=== PATIENT | female | born 1995 | race Caucasian/White ===

== ENCOUNTER 2016-11-14 18:26 | Emergency (ER) | payer MEDICAID ==
[2016-11-14 18:51] VITALS: BP 116/71
--- NOTE | 2016-11-14 19:26 | UC ---
Respiratory Complaint HPI - HPI Summary HPI Summary: Patient presents with URI, nausea and abnormal discharge x 10 days. Hx of chlamydia. Patient is unsure if she has any STD's. Discharge is thick and white without burning or labial irritation. Denies odor. She notes to intermittent nausea daily but denies vomiting. URI symptoms of cough and congestion present x 10 days. She has been eating and drinking OK. Denies chest pressure, pain or SOB. Denies neck pain, V/C/D or back pain. Denies urinary symptoms. - History of Current Complaint Chief Complaint: UCGI Stated Complaint: WEAKNESS NAUSEA Time Seen by Provider: 11/14/16 19:01 Hx Obtained From: Patient Hx Last Menstrual Period: 10/17/16 ?: No Onset/Duration: Sudden Onset Severity Initially: Moderate Severity Currently: Moderate Pain Intensity: 1 Pain Scale Used: 0-10 Numeric Character: Cough: Nonproductive Associated Signs And Symptoms: Positive: URI, Nasal Congestion, Sinus Discomfort - Risk Factors Pulmonary Embolism Risk Factors: Negative Cardiac Risk Factors: Negative Pseudomonas Risk Factors: Negative Tuberculosis Risk Factors: Negative - Allergies/Home Medications Allergies/Adverse Reactions: Allergies Allergy/AdvReac Type Severity Reaction Status Date / Time Penicillins Allergy Severe Hives Verified 11/14/16 18:51 Morphine Allergy Hives Verified 11/14/16 18:51 PMH/Surg Hx/FS Hx/Imm Hx Previously Healthy: Yes - Surgical History Surgical History: Yes Surgery Procedure, Year, and Place: Sinus surgery - Family History Known Family History: Positive: None - Social History Occupation: Employed Part-time Lives: With Family Alcohol Use: None Substance Use Type: None Smoking Status (MU): Never Smoked Tobacco - Immunization History Most Recent Influenza Vaccination: Fall 2013 Vaccination Up to Date: Yes Review of Systems Constitutional: Negative Skin: Negative ENT: Nasal Discharge Respiratory: Cough Cardiovascular: Negative Gastrointestinal: Other - nausea Genitourinary: Other - discharge Motor: Negative Musculoskeletal: Negative Neurological: Negative All Other Systems Reviewed And Are Negative: Yes Physical Exam Triage Information Reviewed: Yes Appearance: Well-Appearing, No Pain Distress, Well-Nourished Vital Signs: Initial Vital Signs Temp 98.3 F 11/14/16 18:45 Pulse 86 11/14/16 18:45 Resp 16 11/14/16 18:45 BP 116/71 11/14/16 18:45 Pulse Ox 100 11/14/16 18:45 Vital Signs Reviewed: Yes Eye Exam: Normal Eyes: Positive: Conjunctiva Clear Neck exam: Normal Neck: Positive: Supple, Nontender, No Lymphadenopathy Respiratory Exam: Normal Respiratory: Positive: Chest non-tender, Lungs clear Cardiovascular: Positive: RRR Abdominal Exam: Normal Abdomen Description: Positive: Nontender Musculoskeletal: Positive: Strength Intact Neurological Exam: Normal Neurological: Positive: Alert Psychological: Positive: Age Appropriate Behavior Diagnostic Evaluation - Laboratory O2 Sat by Pulse Oximetry: 100 Respiratory Course/Dx - Course Course Of Treatment: Vaginal discharge white without labial irritation. Patient preferes to have urine test as opposed to vaginal swab. Limitations discussed with patient. GC/Chlamydia urine sent. Will call if results are positive. Zofran given for nausea. Claritin given for head cold symptoms. Patient will follow up with OBGYN as needed. - Differential Dx/Diagnosis Differential Diagnosis/HQI/PQRI: Bronchitis, Sinusitis, Other - GC/Chlamydia, other STD, nausea Provider Diagnoses: Nausea; Vaginal discharge Discharge - Discharge Plan Condition: Stable Disposition: HOME Prescriptions: Loratadine [Claritin 10 MG CAP] 10 mg PO DAILY #15 cap Ondansetron ODT TAB* [Zofran 4 MG Odt TAB*] 4 mg PO Q6H PRN #12 tab.odt MDD 4 PRN Reason: Nausea Patient Education Materials: Upper Respiratory Infection (ED), Acute Nausea and Vomiting (ED) Referrals: BRISA Hays [Primary Care Provider] - Additional Instructions: Will call if positive results of GC/Chlaymdia test Drink plenty of fluids Flonase daily Claritin daily Continue with dayquil as needed for cough Humidifier in the home will help. Tylenol for discomfort. Take all medications as directed. Symptoms or upper respiratory infection should resolve in 1-3 weeks. If symptoms become worse, please come back to or go to the ED.
== END 2016-11-14 19:24 | disposition home or self-care (01) ==
LOC: UCCORT 18:26
DX: N89.8 Other specified noninflammatory disorders of vagina (principal); Z32.02 Encounter for pregnancy test, result negative; Z88.5 Allergy status to narcotic agent; Z88.0 Allergy status to penicillin
CPT/HCPCS: 81003; 84702; 87491; 87591; 99212; G0463

== ENCOUNTER 2016-11-28 18:35 | Emergency (ER) | payer MEDICAID ==
[2016-11-28 19:22] VITALS: BP 115/82
--- NOTE | 2016-11-28 20:29 | UC ---
Complaint Female HPI - HPI Summary HPI Summary: 21 female presents with complaints of vaginally discharge, odor, burning when peeing that began ~3 weeks ago and has worsened since. States she was here on 11/14/16 and was not treated for anything as her cultures came back negative. Patient states since the discharge and odor has become worse. States discharge is white in color however the past day she also has experienced some spotting. Her LMP was 11/18/16 and she has never experiencing spotting in between periods before. Patient does not think she has STDs as she is sexually active with the same partner. She denies abdominal pain, pelvic pain and fever/chills. Does not think she is however is not taking any or using any control measures. No other complaints. Negative PMHx. No meds and denies worsening symptoms during intercourse. She has had intercourse since LMP. No prior pregnancies or STD history. - History Of Current Complaint Chief Complaint: UCGU Stated Complaint: PERSONAL Time Seen by Provider: 11/28/16 19:29 Hx Obtained From: Patient Hx Last Menstrual Period: 11/18/16 ?: No Onset/Duration: Sudden Onset Timing: Constant Severity Initially: Mild Severity Currently: Moderate Pain Intensity: 0 Pain Scale Used: 0-10 Numeric - just uncomfortable Character: Not Applicable Aggravating Factor(s): Urination Alleviating Factor(s): Nothing Associated Signs And Symptoms: Positive: Vaginal Bleeding/Discharge - white and spotting brown/red, Nausea. Negative: Fever, Back Pain, Vomiting(# Of Episodes =), Genital Swelling, Genital Blisters - Allergies/Home Medications Allergies/Adverse Reactions: Allergies Allergy/AdvReac Type Severity Reaction Status Date / Time Penicillins Allergy Severe Hives Verified 11/28/16 19:22 Morphine Allergy Hives Verified 11/28/16 19:22 PMH/Surg Hx/FS Hx/Imm Hx - Additional Past Medical History Additional PMH: Denies PMHx. No DM, HTN, STD history or asthma. No known reproductive illness - Surgical History Surgical History: Yes Surgery Procedure, Year, and Place: Sinus surgery - Family History Known Family History: Positive: None - Social History Alcohol Use: None Substance Use Type: None Smoking Status (MU): Never Smoked Tobacco - Immunization History Most Recent Influenza Vaccination: Fall 2013 Vaccination Up to Date: Yes Review of Systems Constitutional: Negative Respiratory: Negative Cardiovascular: Negative Gastrointestinal: Negative Genitourinary: Dysuria - burning with urination, Other - vaginal discharge and odor, spotting Musculoskeletal: Negative All Other Systems Reviewed And Are Negative: Yes Physical Exam Triage Information Reviewed: Yes Appearance: Well-Appearing, No Pain Distress, Well-Nourished Vital Signs: Initial Vital Signs Temp 97.9 F 11/28/16 19:17 Pulse 65 11/28/16 19:17 Resp 16 11/28/16 19:17 BP 115/82 11/28/16 19:17 Pulse Ox 100 11/28/16 19:17 Vital Signs Reviewed: Yes Eyes: Positive: Conjunctiva Clear ENT: Positive: Hearing grossly normal Neck: Positive: Supple, Nontender, No Lymphadenopathy Respiratory: Positive: Chest non-tender, Lungs clear, Normal breath sounds, No respiratory distress, No accessory muscle use Cardiovascular: Positive: RRR, No Murmur, Pulses Normal Abdomen Description: Positive: Nontender, No Organomegaly, Soft. Negative: Bruit, CVA Tenderness (R), CVA Tenderness (L), Distended, Guarding, McBurney's Point Tenderness, Peritoneal Signs, Pulsatile Mass Bowel Sounds: Positive: Present Musculoskeletal: Positive: Strength Intact, ROM Intact, No Edema Neurological: Positive: Alert Psychological Exam: Normal Skin Exam: Normal UC Physical Exam Vital Signs On Initial Exam: Initial Vitals Temp Pulse Resp BP Pulse Ox 97.9 F 65 16 115/82 100 11/28/16 19:17 11/28/16 19:17 11/28/16 19:17 11/28/16 19:17 11/28/16 19:17 - Genitalia Exam Female Genitourinary: Normal External Exam, Genitalia without Lesions/Masses, Other - no uterus or ovary tenderness on bimanual exam. cervix bleeding and closed. some discharge noted brown/red in color. no whiteish discharge noted, no odor appreciated. erythema of vaginal canal and cervix. no cervical motion tenderness. Complaint Female Dx - Course Course Of Treatment: STD, BV, Yeast and Trich cultures obtained. Urinalysis obtained and negative. Urine negative. due to patient's complaint of odor and discharge symptoms and length of symptoms >3 weeks will attempt treatment with flagyl intravaginally. told to follow up with PCP and OBGYN. will hear of results when obtained. Educated that she still can be at causing the bleeding or it could just be from ovulation or prolonged infection. Aware of worsening signs and symptoms to watch out for and to return if occurr. No abdominal or supra pubic tenderness, no concern for ovarian cysts, uterine etiology at this time. Will wait for culture results. - Differential Dx/Diagnosis Differential Diagnosis/HQI/PQRI: Cervicitis, Pelvic Inflammatory Disease, , Sexually Transmitted Disease, Urinary Tract Infection, Other - BV, [place] Provider Diagnoses: vaginal discharge Discharge - Discharge Plan Condition: Stable Disposition: HOME Prescriptions: metroNIDAZOLE VAGINAL 0.75%* 1 applic VAGINAL BEDTIME #1 tube Patient Education Materials: Bacterial Vaginosis (ED) Referrals: Amilcar Curiel MD [Medical Doctor] - BRISA Hays [Primary Care Provider] - Additional Instructions: Apply medication as directed for the next 5 days. You will hear the results of your tests within the next couple of days. Call and make an appointment with OBGYN and PCP for further evaluation. If symptoms worsen or new symptoms develop please return. Avoid sexual intercourse until symptoms improve.
--- NOTE | 2016-11-30 14:55 | UC ---
Progress - Progress Note Progress Note: notify pt of her results she needs to return for treatment
== END 2016-11-28 20:22 | disposition home or self-care (01) ==
LOC: UCCORT 18:35
DX: N89.8 Other specified noninflammatory disorders of vagina (principal); R11.0 Nausea; Z32.02 Encounter for pregnancy test, result negative; Z88.5 Allergy status to narcotic agent; Z88.0 Allergy status to penicillin
CPT/HCPCS: 81003; 84702; 87480; 87491; 87510; 87591; 87660; 99212; G0463

== ENCOUNTER 2016-11-30 15:23 | Emergency (ER) | payer MEDICAID ==
[2016-11-30 17:49] VITALS: BP 124/67
[2016-11-30] MEDS ORDERED: Azithromycin TAB* 250 MG PO ONE (17:54)
[2016-11-30] MEDS ORDERED: cefTRIAXone VIAL(*) 250 MG VIAL IM ONE (17:55)
[2016-11-30] MEDS ORDERED: Lidocaine 1% INJ* 10 MG/ML 30 ML SDV INJ ONE (17:55)
--- NOTE | 2016-11-30 18:00 | UC ---
Complaint Female HPI - HPI Summary HPI Summary: 21 yo female here to he rxed for gc vaginal d/c x weeks no f/c no joint pain no sore throat no pelvic or abd pain - History Of Current Complaint Chief Complaint: UCGU Stated Complaint: PERSONAL Time Seen by Provider: 11/30/16 17:50 Hx Obtained From: Patient Hx Last Menstrual Period: 12/18/16 Onset/Duration: Gradual Onset, Lasting Weeks Timing: Constant Severity Initially: Mild Severity Currently: Mild Pain Intensity: 0 Pain Scale Used: 0-10 Numeric Character: Not Applicable Aggravating Factor(s): Nothing Alleviating Factor(s): Nothing Associated Signs And Symptoms: Positive: Vaginal Discharge Related Hx: Prior STD Hx - chlamydia - Allergies/Home Medications Allergies/Adverse Reactions: Allergies Allergy/AdvReac Type Severity Reaction Status Date / Time Penicillins Allergy Severe Hives Verified 11/30/16 17:42 Morphine Allergy Hives Verified 11/30/16 17:42 PMH/Surg Hx/FS Hx/Imm Hx Previously Healthy: Yes - Surgical History Surgical History: Yes Surgery Procedure, Year, and Place: Sinus surgery - Family History Known Family History: Positive: Hypertension - Social History Alcohol Use: None Substance Use Type: None Smoking Status (MU): Never Smoked Tobacco - Immunization History Most Recent Influenza Vaccination: Fall 2013 Vaccination Up to Date: Yes Review of Systems Constitutional: Negative Skin: Negative Eyes: Negative ENT: Negative Respiratory: Negative Cardiovascular: Negative Gastrointestinal: Negative Genitourinary: Negative Motor: Negative Neurovascular: Negative Musculoskeletal: Negative Neurological: Negative Psychological: Negative All Other Systems Reviewed And Are Negative: Yes Physical Exam Triage Information Reviewed: Yes Appearance: Well-Appearing, No Pain Distress, Well-Nourished Vital Signs: Initial Vital Signs Temp 98.1 F 11/30/16 17:43 Pulse 84 11/30/16 17:43 Resp 12 11/30/16 17:43 BP 124/67 11/30/16 17:43 Pulse Ox 99 11/30/16 17:43 Vital Signs Reviewed: Yes Eyes: Positive: Conjunctiva Clear ENT: Positive: Hearing grossly normal, Pharynx normal. Negative: Trismus, Muffled/hoarse voice Neck: Positive: Supple, Nontender Respiratory: Positive: Lungs clear, Normal breath sounds, No respiratory distress Cardiovascular: Positive: RRR, No Murmur Abdomen Description: Positive: Nontender, Soft. Negative: CVA Tenderness (R), CVA Tenderness (L) Neurological: Positive: Alert Psychological Exam: Normal Complaint Female Dx - Differential Dx/Diagnosis Provider Diagnoses: gonorrhea Discharge - Discharge Plan Condition: Stable Disposition: HOME Patient Education Materials: Gonorrhea (ED) Referrals: BRISA Hays [Primary Care Provider] - 2 Weeks (you should be rechecked for proof of cure) Additional Instructions: partner needs treatment too
--- NOTE | 2016-12-01 07:15 | UC ---
Progress - Progress Note Progress Note: + Trichomonas will call in Flagyl 2 gm x 1
== END 2016-11-30 18:29 | disposition home or self-care (01) ==
LOC: UCCORT 15:23
DX: A54.9 Gonococcal infection, unspecified (principal); A59.9 Trichomoniasis, unspecified; Z88.5 Allergy status to narcotic agent; Z88.0 Allergy status to penicillin
CPT/HCPCS: 96372; 99212; A9270-GY; G0463; J0696; J2001

== ENCOUNTER 2017-05-14 16:03 | Emergency (ER) | payer OTHER ==
[2017-05-14 16:23] VITALS: BP 107/69
--- NOTE | 2017-05-14 16:58 | UC ---
Complaint Female HPI - HPI Summary HPI Summary: vaginal discharge x 4 days clear discharge, no odor, no pain no new partners + hx of STDs no fever, no chills, + right lower abdominal pain no n/v/d/c no dysuria - History Of Current Complaint Chief Complaint: UCAbdominalPain Stated Complaint: PERSONAL Time Seen by Provider: 05/14/17 16:18 Hx Obtained From: Patient Hx Last Menstrual Period: 04/30/17 Onset/Duration: Gradual Onset, Lasting Days - 4, Still Present Timing: Constant Severity Initially: Moderate Severity Currently: Moderate Character: Dull - rlq pain Aggravating Factor(s): Nothing Alleviating Factor(s): Nothing Associated Signs And Symptoms: Positive: Vaginal Discharge. Negative: Fever, Back Pain, Vaginal Bleeding/Discharge, Nausea, Vomiting(# Of Episodes =), Genital Swelling, Genital Blisters, Retained Foregin Body (Specify) - Allergies/Home Medications Allergies/Adverse Reactions: Allergies Allergy/AdvReac Type Severity Reaction Status Date / Time Penicillins Allergy Severe Hives Verified 05/14/17 16:23 Morphine Allergy Hives Verified 05/14/17 16:23 Home Medications: Home Medications Clindamycin HCl [Clindamycin 150 MG CAP*] 150 mg PO TID 05/14/17 [History Confirmed 05/14/17] PMH/Surg Hx/FS Hx/Imm Hx Previously Healthy: Yes - Surgical History Surgical History: Yes Surgery Procedure, Year, and Place: Sinus surgery - Family History Known Family History: Positive: Hypertension - Social History Alcohol Use: None Substance Use Type: None Smoking Status (MU): Never Smoked Tobacco - Immunization History Most Recent Influenza Vaccination: Fall 2013 Vaccination Up to Date: Yes Review of Systems Constitutional: Negative Skin: Negative Eyes: Negative ENT: Negative Respiratory: Negative Cardiovascular: Negative Gastrointestinal: Abdominal Pain Genitourinary: Vaginal/Penile Discharge Neurovascular: Negative Is Patient Immunocompromised?: No All Other Systems Reviewed And Are Negative: Yes Physical Exam Triage Information Reviewed: Yes Appearance: Well-Appearing, No Pain Distress, Well-Nourished Vital Signs: Initial Vital Signs Temp 97.8 F 05/14/17 16:19 Pulse 80 05/14/17 16:19 Resp 16 05/14/17 16:19 BP 107/69 05/14/17 16:19 Pulse Ox 98 05/14/17 16:19 ENT: Positive: Normal ENT inspection, Hearing grossly normal, Pharynx normal Neck: Positive: Supple, Nontender, No Lymphadenopathy Respiratory Exam: Normal Respiratory: Positive: Chest non-tender, Lungs clear, Normal breath sounds Cardiovascular: Positive: RRR, No Murmur, Pulses Normal Abdomen Description: Positive: No Organomegaly, Soft, Other: - RLQ TENDERNESS. Negative: CVA Tenderness (R), CVA Tenderness (L), Distended, Guarding Bowel Sounds: Positive: Present Musculoskeletal Exam: Normal Skin Exam: Other UC Physical Exam Vital Signs On Initial Exam: Initial Vitals Temp Pulse Resp BP Pulse Ox 97.8 F 80 16 107/69 98 05/14/17 16:19 05/14/17 16:19 05/14/17 16:19 05/14/17 16:19 05/14/17 16:19 - Genitalia Exam Female Genitourinary: Cervix Discharge - CLEAR TO WHITE, Cervix Tender - NONE Complaint Female Dx - Differential Dx/Diagnosis Provider Diagnoses: VAGINITIS Discharge - Discharge Plan Condition: Stable Disposition: HOME Patient Education Materials: Vaginitis (ED), Abdominal Pain (ED) Referrals: Non Staff,Doctor [Primary Care Provider] - 5 Days Additional Instructions: WILL CHECK FOR GC/ CHLAMYDIA CALL THE OFFICE IN 2 DAYS FOR THE RESULTS WILL TREAT ACCORDINGLY
== END 2017-05-14 17:06 | disposition home or self-care (01) ==
LOC: UCCORT 16:03
DX: N76.0 Acute vaginitis (principal); Z32.02 Encounter for pregnancy test, result negative; Z88.0 Allergy status to penicillin; Z88.5 Allergy status to narcotic agent
CPT/HCPCS: 81003; 84702; 87480; 87491; 87510; 87591; 99212; G0463

== ENCOUNTER 2017-06-08 19:43 | Emergency (ER) | payer OTHER ==
[2017-06-08 20:08] VITALS: BP 117/73
[2017-06-08] MEDS ORDERED: Azithromycin TAB* 250 MG PO ONE (20:20)
--- NOTE | 2017-06-08 20:24 | UC ---
Complaint Female HPI - HPI Summary HPI Summary: both here and her partner were treated for chlamydia a few months ago---They did not wait 7 days before resuming sex---Patient is feeling like sx have returned - History Of Current Complaint Chief Complaint: UCAbdominalPain Stated Complaint: ABD PAIN Time Seen by Provider: 06/08/17 19:59 Hx Obtained From: Patient Hx Last Menstrual Period: 1 week ago ?: No Onset/Duration: Gradual Onset, Lasting Days, Still Present Timing: Constant Severity Initially: Mild Severity Currently: Mild Character: Dull Aggravating Factor(s): Nothing Associated Signs And Symptoms: Positive: Vaginal Discharge - Allergies/Home Medications Allergies/Adverse Reactions: Allergies Allergy/AdvReac Type Severity Reaction Status Date / Time Penicillins Allergy Severe Hives Verified 05/14/17 16:23 Morphine Allergy Hives Verified 05/14/17 16:23 PMH/Surg Hx/FS Hx/Imm Hx Previously Healthy: Yes - Surgical History Surgical History: Yes Surgery Procedure, Year, and Place: Sinus surgery - Family History Known Family History: Positive: Hypertension - Social History Occupation: Employed Full-time Lives: With Family Alcohol Use: None Substance Use Type: None Smoking Status (MU): Never Smoked Tobacco - Immunization History Most Recent Influenza Vaccination: Fall 2013 Vaccination Up to Date: Yes Review of Systems Constitutional: Negative Skin: Negative Eyes: Negative ENT: Negative Respiratory: Negative Cardiovascular: Negative Gastrointestinal: Abdominal Pain - slight lower abd pain Genitourinary: Negative Motor: Negative Neurovascular: Negative Musculoskeletal: Negative Neurological: Negative Psychological: Negative Is Patient Immunocompromised?: No All Other Systems Reviewed And Are Negative: Yes Physical Exam Triage Information Reviewed: Yes Appearance: Well-Appearing, No Pain Distress, Well-Nourished Vital Signs: Initial Vital Signs Temp 98.0 F 06/08/17 20:04 Pulse 76 06/08/17 20:04 Resp 14 06/08/17 20:04 BP 117/73 06/08/17 20:04 Pulse Ox 100 06/08/17 20:04 Vital Signs Reviewed: Yes Eye Exam: Normal Eyes: Positive: Conjunctiva Clear ENT Exam: Normal ENT: Positive: Normal ENT inspection, Hearing grossly normal. Negative: Nasal congestion, Nasal drainage, Trismus, Muffled voice, Hoarse voice Dental Exam: Normal Neck exam: Normal Neck: Positive: Supple, Nontender, No Lymphadenopathy Respiratory Exam: Normal Respiratory: Positive: Chest non-tender, Lungs clear, Normal breath sounds, No respiratory distress, No accessory muscle use Cardiovascular Exam: Normal Cardiovascular: Positive: RRR, No Murmur, Pulses Normal, Brisk Capillary Refill Abdominal Exam: Normal Abdomen Description: Positive: Nontender, No Organomegaly, Soft. Negative: CVA Tenderness (R), CVA Tenderness (L), Distended, McBurney's Point Tenderness, Peritoneal Signs Bowel Sounds: Positive: Present Musculoskeletal Exam: Normal Musculoskeletal: Positive: Strength Intact, ROM Intact, No Edema Neurological Exam: Normal Neurological: Positive: Alert, Muscle Tone Normal Psychological Exam: Normal Psychological: Positive: Normal Response To Family Skin Exam: Normal Complaint Female Dx - Course Course Of Treatment: [place] with Zithromax times one now and provided EPT to partner no Sex (vaginal oral or anal) for 7 day follow with [facility] - Differential Dx/Diagnosis Provider Diagnoses: STD exposure Discharge - Discharge Plan Condition: Stable Disposition: HOME Patient Education Materials: Chlamydia (ED), Sexually Transmitted Diseases (ED) Referrals: [facility] [Outside] - 7 Days
== END 2017-06-08 20:38 | disposition home or self-care (01) ==
LOC: UCCORT 19:43
DX: Z20.2 Contact with and (suspected) exposure to infections with a predominantly sexual mode of transmission (principal); R10.30 Lower abdominal pain, unspecified; N89.8 Other specified noninflammatory disorders of vagina; Z88.0 Allergy status to penicillin; Z88.5 Allergy status to narcotic agent
CPT/HCPCS: 99212; A9270-GY; G0463

== ENCOUNTER 2017-08-28 11:45 | Emergency (ER) | payer OTHER ==
[2017-08-28 12:00] VITALS: BP 112/66
--- NOTE | 2017-08-28 12:07 | UC ---
Complaint Female HPI - HPI Summary HPI Summary: 21 y/o female presents to the urgent care c/o itchy white vaginal discharge and burning pain on urination for the past 3 days. Pt reports she has not taking anything to alleviate symptoms. Pt has Hx of Chlamydia in 2016 which resolved. she sometime has sexual intercourse w/ condoms and concerned w. STD's now. Pt denies fever, pelvic pain, lower back pain, abdominal pain, N/V/D. LMP: w/ regular menstrual cycles. - History Of Current Complaint Chief Complaint: UCGU Stated Complaint: PERSONAL Time Seen by Provider: 08/28/17 12:05 Hx Obtained From: Patient Hx Last Menstrual Period: 08/09/17 ?: No Onset/Duration: Gradual Onset, Lasting Days - 3 days, Still Present, Worse Since - today Timing: Constant Severity Initially: Mild Severity Currently: Mild Pain Intensity: 0 Pain Scale Used: 0-10 Numeric Character: Not Applicable Aggravating Factor(s): Floyd Alleviating Factor(s): Nothing Associated Signs And Symptoms: Positive: Vaginal Discharge. Negative: Fever, Back Pain, Nausea, Vomiting(# Of Episodes =), Genital Swelling, Genital Blisters - Risk Factors Ectopic Risk Factor: Negative Ovarian Torsion Risk Factor: Negative - Allergies/Home Medications Allergies/Adverse Reactions: Allergies Allergy/AdvReac Type Severity Reaction Status Date / Time morphine Allergy Intermediate Hives Verified 08/28/17 12:01 Penicillins Allergy Intermediate Hives Verified 08/28/17 12:00 PMH/Surg Hx/FS Hx/Imm Hx Previously Healthy: Yes Respiratory History: Asthma - Surgical History Surgical History: Yes Surgery Procedure, Year, and Place: Sinus surgery - Family History Known Family History: Positive: Hypertension, Diabetes - Social History Occupation: Employed Full-time Lives: With Family Alcohol Use: None Substance Use Type: None Smoking Status (MU): Never Smoked Tobacco - Immunization History Most Recent Influenza Vaccination: Fall 2013 Vaccination Up to Date: Yes Review of Systems Constitutional: Negative Skin: Negative Eyes: Negative ENT: Negative Respiratory: Negative Cardiovascular: Negative Gastrointestinal: Negative Genitourinary: Vaginal/Penile Itching, Vaginal/Penile Discharge Motor: Negative Neurovascular: Negative Musculoskeletal: Negative Neurological: Negative Psychological: Negative Is Patient Immunocompromised?: No All Other Systems Reviewed And Are Negative: Yes Physical Exam - Summary Physical Exam Summary: Vital signs: reviewed General: well developed, well nourished female sitting in the examining table w /o any acute distress. Head: Normocephalic, no lesions. Eyes: PERRLA, EOM's full, conjunctiva clear, fundi grossly normal. Ears: EAC's clear, TM's normal. Nose: Mucosa normal, no obstruction. Throat: Clear, no exudates, no lesions. Neck: Supple, no masses, no thyromegaly, no bruits. Chest: Lungs clear, no rales, no rhonchi, no wheezes. Heart: RR, no murmurs, no rubs, no gallops. Abdomen: Soft, no tenderness, no masses, BS normal. : Normal, no lesions, no discharge, no hernias noted. Pelvic: I was assisted by the nurse Aide. External genitalia within normal limits. There is no lesions there is no masses noted. Speculum exam: The vaginal leung are within normal limits w/ profuse yellowish creamy cottage cheese vaginal discharge, no the lesions or rashes. The cervix is closed with no lesions or masses. There is no CMT's, and no adnexal masses. Sample sent to Lab for G/C and Affirm panel. Rectal: No lesions, no hemorrhoids, Back: Normal curvature, no tenderness. Extremities: FROM, no deformities, no edema, no erythema. Neuro: Physiological, no localizing findings. Skin: Normal, no rashes, no lesions noted. Triage Information Reviewed: Yes Vital Signs: Initial Vital Signs Temp 98.5 F 08/28/17 11:56 Pulse 81 08/28/17 11:56 Resp 20 08/28/17 11:56 BP 112/66 08/28/17 11:56 Pulse Ox 100 08/28/17 11:56 Complaint Female Dx - Course Course Of Treatment: 21 y/o female presents to the urgent care c/o itchy white vaginal discharge and burning pain on urination for the past 3 days. Pt reports she has not taking anything to alleviate symptoms. Pt has Hx of Chlamydia in 2017 which resolved. she sometime has sexual intercourse w/ condoms and concerned w. STD's now. Pt denies fever, pelvic pain, lower back pain, abdominal pain, N/V/D. LMP: w/ regular menstrual cycles.Hx obtained. Pregnacy test: negative, UA: leukoesteraces 2+. Pt w/ a profuse yellowish cottage cheese vaginal discharge on pelvic examination. Pt w/ both Bacterail vaginosis and Vulvovaginal candidiasis. Pt Rx Fluconazole 100mg PO and Metrogel Vaginal cream. Sample sent to Lab for GC/chla and Affirm panel to r/o any abnormality to screen for STD's. pt will be notified of result.. Pt understood and agreed with plan of care. - Differential Dx/Diagnosis Differential Diagnosis/HQI/PQRI: Cervicitis, Renal Colic, Sexually Transmitted Disease, Urinary Tract Infection, Other - vaginosis Provider Diagnoses: 1- Bacterial Vaginosis. 2-Vulvovaginal Candidiasis Discharge - Sign-Out/Discharge Documenting (check all that apply): Discharge - Discharge Plan Condition: Stable Disposition: HOME Prescriptions: Fluconazole 150 MG (NF) [Diflucan 150 mg (NF)] 150 mg PO ONCE #1 tab metroNIDAZOLE VAGINAL 0.75%* 1 applic VAGINAL BEDTIME #1 lisa Patient Education Materials: Bacterial Vaginosis (ED), Sexually Transmitted Diseases (ED), Yeast Infection (ED) Referrals: Nicolasa Price MD [Primary Care Provider] - 3 Days Additional Instructions: 1- Please take and apply medications as directed. Avoid sexual intercourse or wear a condom while applying medications 3- Specimen were sent to lab, if anything abnormal you will receive a call from us for further treatment. 4-If not improvement of symptoms please return to the urgent care or f/u with your PLSQL DEVELOPER for further treatment - Billing Disposition and Condition Condition: STABLE Disposition: HOME
== END 2017-08-28 13:08 | disposition home or self-care (01) ==
LOC: UCCORT 11:45
DX: N76.0 Acute vaginitis (principal); B37.3 Candidiasis of vulva and vagina; B96.89 Other specified bacterial agents as the cause of diseases classified elsewhere; Z88.5 Allergy status to narcotic agent; Z88.0 Allergy status to penicillin
CPT/HCPCS: 81003; 84702; 87086; 87480; 87491; 87510; 87591; 87661; 99212; G0463